=== PATIENT | male | born 1995 | race African-American/Black ===

== ENCOUNTER 2016-08-18 15:12 | Emergency (ER) | payer BC, MEDICAID ==
[~2016-08-18] VITALS: Ht 188 cm; Wt 93.0 kg
[2016-08-18 15:25] VITALS: BP 122/50
== END 2016-08-18 18:38 | disposition home or self-care (01) ==
LOC: ER 16:06
DX: S83.92XA Sprain of unspecified site of left knee, initial encounter (principal); W01.0XXA Fall on same level from slipping, tripping and stumbling without subsequent striking against object, initial encounter; Y93.89 Activity, other specified; Y92.018 Other place in single-family (private) house as the place of occurrence of the external cause
CPT/HCPCS: 73560; 99284; Z7610